=== PATIENT | male | born 1990 | race Caucasian/White ===

== ENCOUNTER 2023-03-14 08:54 | Emergency (ER) | payer OTHER, BC ==
[2023-03-14] MEDS ORDERED: Ibuprofen 400 MG Tab PO ONE (09:02)
== END 2023-03-14 09:52 | disposition home or self-care (01) ==
LOC: MW.ED 08:54
DX: S67.196A Crushing injury of right little finger, initial encounter (principal); W23.0XXA Caught, crushed, jammed, or pinched between moving objects, initial encounter
CPT/HCPCS: 73130-26-RT; 73130-RT; 99283